=== PATIENT | female | born 1990 | race Caucasian/White ===

== ENCOUNTER 2017-01-01 09:43 | Emergency (ER) | payer BC ==
[2017-01-01 09:58] VITALS: BP 105/66
--- NOTE | 2017-01-01 11:19 | RAD ---
INDICATION: Atraumatic, sudden onset bilateral elbow pain COMPARISON: None. TECHNIQUE: 4 views right elbow. REPORT: The visualized bones of the right elbow are well corticated and properly aligned. There is no radiographically apparent fracture or dislocation. There is no radiographic evidence of pathologic joint effusion. IMPRESSION: Normal radiographs of the bilateral elbows. If the patient's symptoms persist further follow-up imaging is recommended.
--- NOTE | 2017-01-09 15:35 | UC ---
Josey Crum Claudia, scribed for Andree Araujo MD on 01/01/17 at 1038 . Upper Extremity HPI - HPI Summary HPI Summary: 26 year old female presents to the ED with bilateral arm pain. Pt notes that she was woken up at 0400am with bilateral elbow pain. Pt states that she was fine before she went to bed. Pt denies any shoulder, wrist, finger pain. Pt reports that she has been unable to fully extend her elbows since sudden onset of pain this am. She notes that it feels like there is a tendon pulling on her arms during sagittal plane motion. Pt denies taking and ABx for anything in the last few months. She does admit having a stomach virus last week lasting about 1 day. Pt denies being exposed to anything new, being bite by anything as well as traveling anywhere. Pt also denies any neck pain. - History of Current Complaint Chief Complaint: UCUpperExtremity Stated Complaint: ARM PAIN Time Seen by Provider: 01/01/17 10:28 Hx Obtained From: Patient Hx Last Menstrual Period: 12/26/16 Onset/Duration: Sudden Onset, Lasting Hours - since 0400am, Still Present Location Of Pain: Is Discrete @ - elbows bilaterally Aggravating Factor(s): Flexion, Extension, Abduction, Adduction - Allergies/Home Medications Allergies/Adverse Reactions: Allergies Allergy/AdvReac Type Severity Reaction Status Date / Time No Known Allergies Allergy Verified 03/05/13 17:50 Home Medications: Home Medications Alprazolam [Xanax Xr] 01/01/17 [History] QUEtiapine XR TAB* [Seroquel Xr TAB*] 01/01/17 [History] Zolpidem TAB* [Ambien*] 01/01/17 [History] PMH/Surg Hx/FS Hx/Imm Hx Previously Healthy: Yes Endocrine History Of: Denies: Diabetes, Thyroid Disease Cardiovascular History Of: Denies: Cardiac Disorders, Hypertension Respiratory History Of: Denies: COPD, Asthma GI/ History Of: Denies: Ulcer Psychological History Of: Reports: Bipolar Disorder - Surgical History Surgical History: Yes Surgery Procedure, Year, and Place: Dental surgery-wisdom teeth - Family History Known Family History: Negative: Hypertension, Diabetes - Social History Occupation: Student Lives: With Family Alcohol Use: None Substance Use Type: None Smoking Status (MU): Never Smoked Tobacco Review of Systems Constitutional: Negative Skin: Negative Eyes: Negative ENT: Negative Respiratory: Negative Cardiovascular: Negative Gastrointestinal: Negative Genitourinary: Negative Motor: Negative Neurovascular: Negative Musculoskeletal: Other: - see hpi Neurological: Negative Psychological: Negative All Other Systems Reviewed And Are Negative: Yes Physical Exam Triage Information Reviewed: Yes Appearance: Well-Nourished Vital Signs: Initial Vital Signs Temp 98.6 F 01/01/17 09:50 Pulse 102 01/01/17 09:50 Resp 16 01/01/17 09:50 BP 105/66 01/01/17 09:50 Pulse Ox 99 01/01/17 09:50 Vital Signs Reviewed: Yes Eye Exam: Normal ENT Exam: Normal Neck exam: Normal Respiratory Exam: Normal Respiratory: Positive: Chest non-tender, Lungs clear, Normal breath sounds Cardiovascular Exam: Normal Cardiovascular: Positive: RRR, No Murmur, Pulses Normal, Brisk Capillary Refill Abdominal Exam: Normal Abdomen Description: Positive: Nontender, No Organomegaly, Soft Musculoskeletal Exam: Normal Musculoskeletal: Positive: Strength Intact - painful to straighten against or rotate inwards both elbows, r>l. Painful flexion against resistance. Distal pulses and cap refill good. Strength and rom good bilat hands and wrists. No paresth /dysesth. Neurological Exam: Normal Psychological Exam: Normal Skin Exam: Normal Skin: Positive: Other - no visible rashes Diagnostics - Radiology ELBOW XRAY RIGHT Xray Interpretation: No Acute Changes - NORMAL RADIOGRAPH OF THE ELBOWS BILATERALLY Radiology Interpretation Completed By: Radiologist ELBOW XRAY LEFT Xray Interpretation: No Acute Changes - NORMAL RADIOGRAH OF THE ELBOWS BILATERALLY Radiology Interpretation Completed By: Radiologist Re-Evaluation - Re-Evaluation 1 Re-Evaluation Time: 11:54 Comment: xray results are discussed with the pt. Upper Extremity Course/Dx - Course Course Of Treatment: No new problems in ccc,. considered below differential diagnoses. Reviewed imaging with pt. Suspect lat epicondylitis, bilat. Reviewed need for f/u. Reviewed treatment plan. Understandably, sling immobilization is challenging but she will try as possible. Questions answered to the best of my ability. Will seek medical attention for worse or new problems. - Differential Dx/Diagnosis Provider Diagnoses: Bilat lat epicondylitis Discharge - Discharge Plan Condition: Stable Disposition: HOME Prescriptions: Naproxen [Naproxen 500 MG TABS] 500 mg PO Q8HR PRN #30 tab PRN Reason: Pain Patient Education Materials: Tennis Elbow (ED), Tendinitis (ED) Forms: *Work Release Referrals: Tarun Dukes DO [Primary Care Provider] - Additional Instructions: Follow up with your primary care physician, Dr. Dukes, at the end of this week. Please seek medical attention for worse or new problems in the meantime. The documentation as recorded by the Josey perez Claudia accurately reflects the service I personally performed and the decisions made by me, Andree Araujo MD.
== END 2017-01-01 12:06 | disposition home or self-care (01) ==
LOC: UCEAST 09:43
DX: M77.12 Lateral epicondylitis, left elbow (principal); M77.11 Lateral epicondylitis, right elbow
CPT/HCPCS: 99213; G0463